=== PATIENT | female | born 1950 | race Caucasian/White ===

== ENCOUNTER → 2017-01-07 | Day surgery (SDC) | payer MEDICARE ==
[~2017-01-07] MED LIST: ALEN1TAB48 PO; ALEN70TA39 PO; ASPI325T PO; BACT800T5 PO; CHOL50006 PO; COMMODE 3-IN-11 MIS; CPMMACHINE; ENOX40P SQ; ETOD400T PO; HYDR12.56 PO; HYDR25TA5 PO; LACTATED RINGER'S 1000 ML INJ 1,000 ML ONE; LEVO.15 PO; LORTA5 PO; METH5TAB4 PO; NORC5TAB PO; OMEP20TA PO; OXYB5TAB PO; OXYB5TAB10 PO; PANT40TA3 PO; POTA10TA2 PO; POTA10TA8 PO; PROPOFOL 100 MG/10 ML INJ IV ONE; VITA100064 PO; WALKER WHEELS/F1 MIS; Z.0.COMMODE-3:1; Z.0.CPM; Z.0.WALKERFRONT
--- NOTE | 2017-01-07 15:25 | GIPROC ---
[facility] [address] [facility], [address] EGD PROCEDURE REPORT EXAM DATE: 01/07/2017 PATIENT NAME: Kay Crane MR #: [id number] BIRTHDATE: 1950 ATTENDING: Klever Akhtar MD ORDER #: [id number] BOBBIN DRIER: none STATUS: outpatient INDICATIONS: The patient is a 66 yr old female here for an EGD due to heartburn and hx of gastric band PROCEDURE PERFORMED: EGD w/ biopsy MEDICATIONS: None and Per Anesthesia. TOPICAL ANESTHETIC: none CONSENT: The patient understands the risks and benefits of the procedure and understands that these risks include, but are not limited to: sedation, allergic reaction, infection, perforation and/or bleeding. Alternative means of evaluation and treatment include, among others: physical exam, x-rays, and/or surgical intervention. The patient elects to proceed with this endoscopic procedure. medical equipment was checked for proper function. Hand hygiene and appropriate measures for infection prevention was taken. After the risks, benefits and alternatives of the procedure were thoroughly explained, Informed consent was verified, confirmed and timeout was successfully executed by the treatment team. The patient was anesthetized with topical anesthesia and the EC-[id number] ([id number]) endoscope was introduced through the mouth and advanced to the second portion of the duodenum. Retroflexed views revealed a hiatal hernia and Retroflexed views revealed small The gastroscope was then slowly withdrawn and removed. Small hiatal hernia, reflux gastrititis. ADVERSE EVENTS: There were no complications. IMPRESSIONS: 1. Small hiatal hernia, reflux gastrititis 2. Retroflexed views revealed a small hiatal hernia RECOMMENDATIONS: Await biopsy results. Biopsy results will not be ready for 7-10 days. If you don't hear from us in two weeks, call our office for biopsy results. continue PPI f/u with Dr. Culver PATIENT CONDITION: stable DISPOSITION: Home REPEAT EXAM: NONE Klever Akhtar MD eSigned: Klever Akhtar MD 01/07/2017 3:25 PM cc: Alejandro Carrillo M.D.
== END | disposition home or self-care (01) ==
LOC: ESDC 13:03
PROVIDERS: ATTEND Surgery
DX: R12 Heartburn (principal); K29.70 Gastritis, unspecified, without bleeding; K44.9 Diaphragmatic hernia without obstruction or gangrene
CPT/HCPCS: 00740; 43239; 88305; 88312; J3010; J7120

== ENCOUNTER 2017-01-22 05:07 | Inpatient (IN) | payer MEDICARE ==
[~2017-01-22] VITALS: Ht 157.5 cm; Wt 110.0 kg
[~2017-01-22 05:07] MED LIST changes: -ALEN70TA39 PO; -ASPI325T PO; -BACT800T5 PO; -CHOL50006 PO; -COMMODE 3-IN-11 MIS; -CPMMACHINE; -ENOX40P SQ; -HYDR12.56 PO; -LACTATED RINGER'S 1000 ML INJ 1,000 ML ONE; -LORTA5 PO; -METH5TAB4 PO; -NORC5TAB PO; -OMEP20TA PO; -OXYB5TAB PO; -POTA10TA2 PO; -PROPOFOL 100 MG/10 ML INJ IV ONE; -WALKER WHEELS/F1 MIS; -Z.0.COMMODE-3:1; -Z.0.CPM; -Z.0.WALKERFRONT
[2017-01-22] MEDS ORDERED: METOPROLOL TARTRATE 25 MG TAB PO PRN (05:45)
[2017-01-22] MEDS ORDERED: metroNIDAZOLE 500 MG INJ 100 ML IV SCH (05:45)
[2017-01-22] MEDS ORDERED: CHLORHEXIDINE GLUCONATE 2 % 1 PACK (2 CLOTHS) TOPICAL PRN (05:45)
[2017-01-22] MEDS ORDERED: SODIUM CHLORID 0.9% 500 ML IV PRN (05:45)
[2017-01-22] MEDS ORDERED: ACETAMINOPHEN 1000 MG/100 ML VIAL IV SCH (05:45)
[2017-01-22] MEDS ORDERED: ONDANSETRON HCL 4 MG/2 ML VIAL IV PUSH SCH (05:45)
[2017-01-22] MEDS ORDERED: APREPITANT 40 MG CAP PO SCH (05:45)
[2017-01-22] MEDS ORDERED: ceFAZolin 2 GM PREMIX 50 ML IV SCH (05:45)
[2017-01-22] MEDS ORDERED: INSULIN HUMAN REGULAR 1,000 UNITS/10 ML VIAL SQ PRN (05:45)
[2017-01-22] MEDS ORDERED: LACTATED RINGER'S 1000 ML IV PRN (05:45)
[2017-01-22] MEDS ORDERED: SCOPOLAMINE 1.5 MG PATCH T-DERMAL SCH (05:45)
[2017-01-22] MEDS ORDERED: POVIDONE IODINE 5% (ANTISEPSIS KIT) 4 APPLICATIONS EACH NARE PRN (05:45)
[2017-01-22 07:32] VITALS: BP 152/73; PULSE 75; RESP 20; TEMP 98; O2SAT 96
[2017-01-22] MEDS ORDERED: DEXAMETHASONE SOD PHOS 4 MG/ML VIAL ONE (09:29)
[2017-01-22] MEDS ORDERED: FAMOTIDINE 20 MG/2 ML VIAL ONE (09:29)
[2017-01-22] MEDS ORDERED: METOCLOPRAMIDE HCL 10 MG/2 ML VIAL ONE (09:29)
[2017-01-22] MEDS ORDERED: MIDAZOLAM HCL 5 MG/5 ML VIAL ONE (09:29)
[2017-01-22] MEDS ORDERED: BUPIVACAINE/EPINEPHRINE 0.25% PF 30 ML VIAL INFIL ONE (10:08)
[2017-01-22] MEDS ORDERED: METHYLENE BLUE 100 MG/10 ML VIAL OTHER ONE (10:28)
[2017-01-22] MEDS: 1/2 NS + KCL 20 MEQ INJ 1,000 ML IV SCH ×3 (11:47→20:25)
[2017-01-22] MEDS ORDERED: ePHEDrine/NS 25 MG/5 ML SYR IV ONE (12:00)
[2017-01-22] MEDS ORDERED: NEOSTIGMINE 3 MG/3 ML SYR IV ONE (12:00)
[2017-01-22] MEDS ORDERED: NALOXONE HCL 0.4 MG/ML AMP IV PRN (12:00)
[2017-01-22] MEDS ORDERED: diphenhydrAMINE HCL 50 MG/ML VIAL IV PRN (12:00)
[2017-01-22] MEDS ORDERED: SODIUM CHLORIDE 0.9% FLUSH 10 ML FLUSH IV FLUSH PRN (12:00)
[2017-01-22] MEDS ORDERED: Post-op Orders (for Pharmacy) MISC OTHER ONE (12:00)
[2017-01-22] MEDS ORDERED: DO NOT ADM ANY ANTICOAGULANT DRUGS PRN (12:00)
[2017-01-22] MEDS ORDERED: ONDANSETRON HCL 4 MG/2 ML VIAL IV PRN (12:00)
[2017-01-22] MEDS ORDERED: PROPOFOL 200 MG/20 ML AMP IV ONE (12:00)
[2017-01-22] MEDS ORDERED: LACTATED RINGER'S 1000 ML INJ 1,000 ML IV ONE (12:00)
[2017-01-22] MEDS ORDERED: diphenhydrAMINE HCL ELIXIR 12.5 MG/5 ML CUP PO PRN (12:00)
[2017-01-22] MEDS ORDERED: ACETAMINOPHEN 325MG/HYDROcodone 7.5MG/15ML UDC PO PRN ×2 (12:00)
[2017-01-22] MEDS ORDERED: ENALAPRILAT 1.25 MG/ML VIAL IV PUSH PRN (12:00)
[2017-01-22] MEDS ORDERED: PHENYLEPH/NS 1000 MCG/10 ML SYR IV ONE (12:00)
[2017-01-22] MEDS ORDERED: fentaNYL CITRATE 250 MCG/5 ML AMP ONE (12:09)
[2017-01-22] MEDS ORDERED: *MEPERIDINE 25 MG INJ VIAL PERIprocedural Use ONLY ONE (12:22)
[2017-01-22] MEDS ORDERED: D5-1/2 NS + KCL 20 MEQ INJ 1,000 ML ONE (12:24)
[2017-01-22] MEDS: RESP: ALBUTEROL 2.5 MG/3 ML NEB (SCH) INH (13:00)
[2017-01-22] MEDS ORDERED: *morphine SULFATE 8 MG/ML PERIprocedure ONLY ONE (13:54)
[2017-01-22] MEDS: PCA - TOTAL MG MORPHINE DELIVERED PER SHIFT SCH ×2 (14:00→20:26)
[2017-01-22] MEDS: MORPHINE SULFATE 30 MG/30 ML PCA IV SCH (14:07)
[2017-01-22 16:00] VITALS: BP 144/61; PULSE 86; RESP 18; TEMP 98.5; O2SAT 92
[2017-01-22] MEDS: metroNIDAZOLE 500 MG INJ 100 ML IV SCH (16:00)
[2017-01-22] MEDS: ENOXAPARIN SODIUM 40 MG/0.4 ML SYRINGE SQ SCH (16:00)
[2017-01-22] MEDS: METOCLOPRAMIDE HCL 10 MG/2 ML VIAL IV PUSH SCH (18:15)
[2017-01-22] MEDS: SODIUM CHLORIDE 0.9% FLUSH 10 ML FLUSH IV FLUSH SCH (20:25)
[2017-01-22 20:27] VITALS: BP 134/61; PULSE 89; RESP 17; TEMP 99.1; O2SAT 93
[2017-01-22 23:52] VITALS: BP 101/61; PULSE 88; RESP 17; TEMP 97.7; O2SAT 96
[2017-01-23] VITALS (7 sets, daily range): BP systolic 112–140; BP diastolic 63–67; PULSE 73–107; RESP 18–19; TEMP 96.2–101; O2SAT 92–98
[2017-01-23] MEDS: 1/2 NS + KCL 20 MEQ INJ 1,000 ML IV SCH ×5 (00:16→15:59)
[2017-01-23] MEDS: METOCLOPRAMIDE HCL 10 MG/2 ML VIAL IV PUSH SCH ×2 (00:16→05:18)
[2017-01-23] MEDS: metroNIDAZOLE 500 MG INJ 100 ML IV SCH ×2 (00:16→09:24)
[2017-01-23] MEDS: RESP: ALBUTEROL 2.5 MG/3 ML NEB (SCH) INH ×7 (01:07→23:22)
[2017-01-23] MEDS: PCA - TOTAL MG MORPHINE DELIVERED PER SHIFT SCH ×3 (05:19→21:40)
[2017-01-23 05:36] LABS: AUTOMATED NEUTROPHIL # 6.2 TH/MM3 (1.8-7.7); BASOPHIL % 0.5 % (0.0-2.0); HEMATOCRIT 35.3 % (35.0-46.0); HEMO FLAGS DIFF FINAL; LYMPH % 9.8 % (9.0-44.0); LYMPHOCYTE # 0.8 TH/MM3 (1.0-4.8); MEAN CORPUSCULAR HEMOGLOBIN 28.4 PG (27.0-34.0); MEAN CORPUSCULAR HGB CONC 34.6 % (32.0-36.0); MONO % 11.6 % (0.0-8.0); NEUT % 78.1 % (16.0-70.0); PLATELET COUNT 179 TH/MM3 (150-450); RED BLOOD COUNT 4.31 MIL/MM3 (4.00-5.30); RED CELL DISTRIBUTION WIDTH 13.9 % (11.6-17.2); WHITE BLOOD COUNT 7.9 TH/MM3 (4.0-11.0)
[2017-01-23 05:57] LABS: BICARBONATE 28.8 MEQ/L (21.0-32.0); MAGNESIUM 1.9 MG/DL (1.5-2.5); POTASSIUM 3.9 MEQ/L (3.5-5.1)
[2017-01-23] MEDS: SODIUM CHLORIDE 0.9% FLUSH 10 ML FLUSH IV FLUSH SCH ×2 (09:00→21:39)
[2017-01-23] MEDS ORDERED: PANTOPRAZOLE SOD 40 MG DELAYED RELEASE TAB PO SCH (09:00)
--- NOTE | 2017-01-23 09:29 | HHI.PR ---
Subjective Subjective Notes 66 yo female POD#1 LAGB removal with conversion to VSG Sitting up in chair Voices no complaints Objective Vitals/I&O Vital Signs Date Time Temp Pulse Resp B/P Pulse Ox O2 Delivery O2 Flow Rate FiO2 01/23/17 08:52 93 21 01/23/17 08:00 98.0 73 19 112/63 01/23/17 01:11 home CPAP 01/22/17 13:30 3 Labs Laboratory Tests Test 01/23/17 04:47 White Blood Count 7.9 Red Blood Count 4.31 Hemoglobin 12.2 Hematocrit 35.3 Mean Corpuscular Volume 82.0 Mean Corpuscular Hemoglobin 28.4 Mean Corpuscular Hemoglobin 34.6 Concent Red Cell Distribution Width 13.9 Platelet Count 179 Mean Platelet Volume 8.1 Neutrophils (%) (Auto) 78.1 Lymphocytes (%) (Auto) 9.8 Monocytes (%) (Auto) 11.6 Eosinophils (%) (Auto) 0.0 Basophils (%) (Auto) 0.5 Neutrophils # (Auto) 6.2 Lymphocytes # (Auto) 0.8 Monocytes # (Auto) 0.9 Eosinophils # (Auto) 0.0 Basophils # (Auto) 0.0 CBC Comment DIFF FINAL Differential Comment Sodium Level 142 Potassium Level 3.9 Chloride Level 107 Carbon Dioxide Level 28.8 Anion Gap 6 Blood Urea Nitrogen 11 Creatinine 0.65 Estimat Glomerular Filtration 91 Rate Random Glucose 103 Calcium Level 8.4 Magnesium Level 1.9 Cardiovascular: Regular Lungs: Clear Abdomen: Post-op tenderness Extremities: Perfused Wound Wound : Wound Location: Abdomen Appearance: Clean & Dry A/P Assessment and Plan Continue to increase fluids Continue with frequent ambulation and breathing exercises The exam, history, and the medical decision-making described in the above note were completed with the assistance of the mid-level provider. I reviewed and agree with the findings presented. I attest that I had a [id number] encounter with the patient on the same day, and personally performed and documented my assessment and findings in the medical record. Discharge Planning D/C home tomorrow YanciSuzetteglenroy Vidal [facility] Jan 23, 2017 09:29 Alejandro Carrillo MD Jan 29, 2017 13:02
[2017-01-23] MEDS ORDERED: METOCLOPRAMIDE HCL 10 MG/2 ML VIAL IV PUSH PRN (12:00)
[2017-01-23] MEDS: ENOXAPARIN SODIUM 40 MG/0.4 ML SYRINGE SQ SCH (15:53)
[2017-01-24] VITALS: BP 101/53; PULSE 74; RESP 20; TEMP 99.4; O2SAT 94
[2017-01-24] MEDS: RESP: ALBUTEROL 2.5 MG/3 ML NEB (SCH) INH ×2 (03:04→08:31)
[2017-01-24] MEDS: 1/2 NS + KCL 20 MEQ INJ 1,000 ML IV SCH ×2 (03:47)
[2017-01-24] MEDS: MORPHINE SULFATE 30 MG/30 ML PCA IV SCH (04:04)
[2017-01-24] MEDS: PCA - TOTAL MG MORPHINE DELIVERED PER SHIFT SCH (04:07)
[2017-01-24] MEDS ORDERED: LEVOTHYROXINE SODIUM 150 MCG TAB PO SCH (06:00)
[2017-01-24 08:00] VITALS: BP 126/71; PULSE 83; RESP 16; TEMP 98.9; O2SAT 93
[2017-01-24] MEDS: SODIUM CHLORIDE 0.9% FLUSH 10 ML FLUSH IV FLUSH SCH (08:08)
[2017-01-24 08:33] VITALS: O2SAT 94
[2017-01-24] MEDS ORDERED: PANTOPRAZOLE SOD 40 MG DELAYED RELEASE TAB PO SCH (09:00)
[2017-01-24] MEDS ORDERED: OXYBUTYNIN CHLORIDE 5 MG TAB PO SCH (09:00)
[2017-01-27] MEDS ORDERED: ALENDRONATE SODIUM 70 MG TAB PO SCH (08:00)
--- NOTE | 2017-02-07 13:45 | MP ---
cc: CHANG CARRILLO DATE OF SURGERY: 01/22/2017 PREOPERATIVE DIAGNOSIS: Morbid obesity with body mass index of 44 complicated by obstructive sleep apnea. Complications of gastric band. POSTOPERATIVE DIAGNOSIS: Morbid obesity with body mass index of 44 complicated by obstructive sleep apnea. Complications of gastric band. Hiatal hernia. OPERATION: Laparoscopic removal of adjustable gastric band. Laparoscopic vertical sleeve gastrectomy over 36-[place] VisiG bougie laparoscopic repair of hiatal hernia. SURGEON Chang Carrillo ANESTHESIA General endotracheal anesthesia ESTIMATED BLOOD LOSS Scant. FINDINGS: Patient with adhesions and scarring around the proximal stomach, moderate-sized hiatal hernia, band orientation in the horizontal position. SPECIMENS None COMPLICATIONS None OPERATION The patient was brought to the operating room, placed on operating table in supine position. Bilateral sequential inflation device placed on lower extremities. General anesthesia instituted. Huber catheter placed. Antibiotics initiated. The abdomen was prepped and draped sterilely. A point in the periumbilical region anesthetized with 25% Marcaine with epinephrine. A skin incision was made 5 mm OptiVu port placed under direct vision and pneumoperitoneum created. Under direct vision, two 5 mm ports were placed in the left upper quadrant. A 15 mm port placed in the right upper quadrant, a 5 mm port placed in the right upper quadrant. Prior to placement of all ports the skin and peritoneum anesthetized with percent Marcaine with epinephrine. The patient was placed in reverse Trendelenburg position left side up Cynthia flex retractor was placed. There were adhesions of the left lobe of the liver and the stomach. This was taken down sharply. The gastric band was identified. The tubing was cut at the peritoneum. The band was then divided and removed from its retrocardiac position. The gastric plications were taken down the hiatus was dissected. There was a moderate-sized hiatal hernia identified both left and right crura of the diaphragm was dissected. The GE junction was mobilized into the abdominal cavity, hernia sac was excised. The crura of the diaphragm was approximated with 2-0 silk suture in a [id number] manner. It was decided to go forward with the gastric sleeve with 36-Croat[place] VISI-G bougie was placed into the antrum. Division of the sleeve was started 5 cm proximal to the pylorus carried towards the angle of his using an Optimitiveelon flex stapler, first firing was with a black load followed by four firings of the green loads. All staple loads were reinforced with seam guard. The pylorus was occluded and methylene blue was then instilled through the bougie. There was no evidence of extravasation. The gastrocolic ligament was then sutured to the posterior leaflet of the seam guard using a 2-0 Vicryl in a running manner. The excised stomach retrieved from the peritoneal cavity in an Endopouch through the 50 mm port site. The gastric band was removed from the peritoneal cavity through the 15 mm port site. The everseal as then placed over the staple line. The Cynthia flex retractor was removed. The fascia at the 15 mm port site approximated with 0 Vicryl suture. CO2 was released. Attention then focused on the abdominal wall. The gastric band port was identified. The incision overlying the port was incised using the electrocautery. The capsule around the port was incised. The port was removed from the abdominal wall fascia. The subcutaneous tissue approximated wall 3-0 Vicryl. All skin incisions were closed with 4-0 Monocryl. The abdominal wall was cleaned and sterile dressing placed. The patient was awakened and taken to recovery room. MD MILLIE Huffman/valentine /11:23 AM /1:37 PM MTDD
== END 2017-01-24 10:34 | disposition home or self-care (01) | DRG 327 ==
LOC: HSDC 05:07 → HSDI 05:08 → EDSTATUS 08:30 → N07B 14:35
PROVIDERS: ADMIT Surgery; ATTEND Surgery
PROC: 0BQR4ZZ (ICD-10-PCS; 2017-01-22)
PROC: 0BQS4ZZ (ICD-10-PCS; 2017-01-22)
PROC: 0DP64CZ Removal of Extraluminal Device from Stomach, Percutaneous Endoscopic Approach (ICD-10-PCS; principal; 2017-01-22 09:35)
PROC: 0DB64Z3 Excision of Stomach, Percutaneous Endoscopic Approach, Vertical (ICD-10-PCS; 2017-01-22 09:35)
DX: K95.09 Other complications of gastric band procedure (principal); Z68.41 Body mass index [BMI] 40.0-44.9, adult; E66.01 Morbid (severe) obesity due to excess calories; E03.9 Hypothyroidism, unspecified; Z46.51 Encounter for fitting and adjustment of gastric lap band; Z87.891 Personal history of nicotine dependence; K21.9 Gastro-esophageal reflux disease without esophagitis; G47.33 Obstructive sleep apnea (adult) (pediatric); K44.9 Diaphragmatic hernia without obstruction or gangrene; Y83.1 Surgical operation with implant of artificial internal device as the cause of abnormal reaction of the patient, or of later complication, without mention of misadventure at the time of the procedure
CPT/HCPCS: 80048; 83735; 85025; 94150; 94640; 94664; J0131; J0690; J1100; J1650; J2175; J2250; J2270; J2370; J2405; J2710; J2765; J3010; J3480; J7120; J7613; J8501